=== PATIENT | female | born 1995 | race African-American/Black ===

== ENCOUNTER 2017-04-21 15:24 | Outpatient (CLI) | payer OTHER ==
[~2017-04-21 15:24] MED LIST: ASPIR 8181 M1 PO; CHROMAGEN,1 CAPSULE PO; IBUPROFEN800 MG PO; NAPROSYN500 MG PO; PRENATAL TABLE1 EAC3 PO
[2017-04-21 15:46] VITALS: BP 120/69
[2017-04-21 17:03] LABS: ADD MIUA? NO; BILIRUBIN NEGATIVE; BLOOD NEGATIVE; COLOR YELLOW ((YELLOW)); GLUCOSE (STRIP) NEGATIVE; KETONES NEGATIVE; LEUKOCYTES NEGATIVE; NITRITE NEGATIVE; PROTEIN (STRIP) NEGATIVE; SPECIFIC GRAVITY 1.018 (1.000-1.030); UCUL ADDED? NO; UROBILINOGEN 0.2 MG/DL (0.2-1.0)
== END 2017-04-21 17:00 | disposition home or self-care (01) ==
LOC: LDRP-OP 15:24 → 2WEST 15:28 → LDRP-OP 07-24 14:16
PROVIDERS: Advanced Practice Midwife
DX: O99.89 Other specified diseases and conditions complicating pregnancy, childbirth and the puerperium (principal); Z3A.28 28 weeks gestation of pregnancy
CPT/HCPCS: 59025; 81003; 87086; G0378

== ENCOUNTER 2017-06-11 02:02 | Outpatient (CLI) | payer OTHER ==
[2017-06-11 02:12] VITALS: BP 114/58
== END 2017-06-11 04:10 | disposition home or self-care (01) ==
LOC: LDRP-OP 02:02 → 2WEST 02:03 → LDRP-OP 07-24 18:47
DX: O47.03 False labor before 37 completed weeks of gestation, third trimester (principal); R10.2 Pelvic and perineal pain; Z3A.36 36 weeks gestation of pregnancy
CPT/HCPCS: 59025; G0378

== ENCOUNTER 2017-06-17 13:02 | Inpatient (IN) | payer OTHER ==
[2017-06-17] VITALS (19 sets, daily range): BP systolic 105–154; BP diastolic 62–81
[~2017-06-17] VITALS: Ht 152.4 cm; Wt 80.7 kg
[2017-06-17 14:06] LABS: EOSINOPHIL (%) 0.5 % (0-5); EOSINOPHIL COUNT 0.1 K/uL (0-0.3); HEMATOCRIT 33.7 % (36.0-46.0); IMMATURE GRANULOCYTE (%) 0.9 % (0.0-0.7); IMMATURE GRANULOCYTE COUNT 0.1 K/uL; INSTRUMENT ABS NEUTROPHIL CT 7.8 K/uL; LYMPHOCYTE COUNT 1.6 K/uL (1.0-2.8); MCH 21.7 PG (29.0-34.0); MCHC 31.5 G/DL (30.0-36.0); MCV 69.1 FL (83-99); MONOCYTE (%) 5.4 % (3-12); MONOCYTE COUNT 0.5 K/uL (0-0.8); NEUTROPHIL (%) 77.4 % (45-76); NEUTROPHIL COUNT 7.8 K/uL (1.8-6.4); RBC DIS.WIDTH-CV 18.5 % (11.8-14.6); RBC DIS.WIDTH-SD 43.3 % (39-53); RED BLOOD COUNT 4.88 M/uL (3.80-5.20); WHITE BLOOD COUNT 10.1 K/uL (4.1-10.2)
[2017-06-17 14:41] LABS: PLATELET COUNT 246 K/uL (156-360)
[2017-06-18 07:21] LABS: EOSINOPHIL (%) 0.6 % (0-5); EOSINOPHIL COUNT 0.1 K/uL (0-0.3); HEMATOCRIT 32.3 % (36.0-46.0); IMMATURE GRANULOCYTE (%) 0.6 % (0.0-0.7); IMMATURE GRANULOCYTE COUNT 0.1 K/uL; INSTRUMENT ABS NEUTROPHIL CT 8.6 K/uL; LYMPHOCYTE COUNT 2.3 K/uL (1.0-2.8); MCH 20.9 PG (29.0-34.0); MCV 69.6 FL (83-99); MONOCYTE (%) 10.8 % (3-12); MONOCYTE COUNT 1.3 K/uL (0-0.8); NEUTROPHIL (%) 69.5 % (45-76); NEUTROPHIL COUNT 8.6 K/uL (1.8-6.4); PLATELET COUNT 208 K/uL (156-360); RBC DIS.WIDTH-CV 18.3 % (11.8-14.6); RBC DIS.WIDTH-SD 44.9 % (39-53); RED BLOOD COUNT 4.64 M/uL (3.80-5.20); WHITE BLOOD COUNT 12.4 K/uL (4.1-10.2)
[2017-06-18 07:45] VITALS: BP 101/64
[2017-06-18 15:19] VITALS: BP 126/72
[2017-06-18 23:00] VITALS: BP 121/70
[2017-06-19 07:54] VITALS: BP 108/67
[2017-06-19] MEDS ORDERED: FERROUS SULFAT324 M1 PO (12:13)
== END 2017-06-19 13:25 | disposition home or self-care (01) | DRG 775 ==
LOC: LDRP-OP 13:02 → 2WEST 13:03 → LDRP-OP 07-26 04:27
PROVIDERS: Advanced Practice Midwife
PROC: 00HU03Z Insertion of Infusion Device into Spinal Canal, Open Approach (ICD-10-PCS; principal; 2017-06-17)
PROC: 10E0XZZ Delivery of Products of Conception, External Approach (ICD-10-PCS; principal; 2017-06-17)
PROC: 3E0S3CZ (ICD-10-PCS; principal; 2017-06-17)
DX: O41.03X0 Oligohydramnios, third trimester, not applicable or unspecified (principal); O77.0 Labor and delivery complicated by meconium in amniotic fluid; D62 Acute posthemorrhagic anemia; O99.02 Anemia complicating childbirth; D50.9 Iron deficiency anemia, unspecified; Z3A.37 37 weeks gestation of pregnancy; Z37.0 Single live birth; K21.9 Gastro-esophageal reflux disease without esophagitis; O99.613 Diseases of the digestive system complicating pregnancy, third trimester; K92.89 Other specified diseases of the digestive system
CPT/HCPCS: 81003; 85025; C1755; J3010; J7120